=== PATIENT | male | born 1960 | race Hispanic/Latino ===

== ENCOUNTER 2016-11-19 07:14 | Emergency (ER) | payer MEDICARE, OTHER ==
[2016-11-19 07:15] VITALS: PULSE 86
[2016-11-19 07:27] VITALS: BMI 20.5
--- NOTE | 2016-11-19 07:38 | ED PDOC ---
Arrival/HPI - General Chief Complaint: Abnormal Skin Integrity Time Seen by Provider: 11/19/16 07:33 Historian: Patient - History of Present Illness Narrative History of Present Illness (Text): 11/19/16 07:38 A 56 year old male, whose past medical history includes hypertension, cardiomyopathy, hyperlipidemia and COPD, presents to the emergency department complaining of active bleeding from port since this morning. As per ER nurse, one of the ports from the PICC line was unclamped. Bleeding resolved immediately after port was clamped. Dressing changed. Patient denies any fever, nausea, vomiting, abdominal pain, chest pain, shortness of breath or any other complaints. PMD: Dr. Flores Time/Duration: Prior to Arrival Symptom Course: Resolved Quality: Other Context: Home Past Medical History - Provider Review Nursing Documentation Reviewed: Yes - Infectious Disease Hx of Infectious Diseases: None - Tetanus Immunization Tetanus Immunization: Unknown - Cardiac Hx Cardiac Disorders: Yes Hx Congestive Heart Failure: Yes (2 years ago) Hx Hypertension: Yes - Pulmonary Hx Chronic Obstructive Pulmonary Disease (COPD): Yes - Neurological Hx Neurological Disorder: No - HEENT Hx HEENT Disorder: No - Renal Hx Renal Disorder: Yes Hx Renal Cancer: Yes - Endocrine/Metabolic Hx Endocrine Disorders: No - Hematological/Oncological Hx Blood Disorders: No - Integumentary Hx Dermatological Disorder: No - Musculoskeletal/Rheumatological Hx Back Pain: Yes Hx Falls: Yes Other/Comment: leg cramps - Gastrointestinal Hx Gastrointestinal Disorders: No - Genitourinary/Gynecological Hx Genitourinary Disorders: No - Psychiatric Hx Psychophysiologic Disorder: No Hx Anxiety: Yes Hx Substance Use: No - Surgical History Hx Open Heart Surgery: Yes Hx Valve Replacement: Yes (2 years ago) - Anesthesia Hx Anesthesia Reactions: No Hx Malignant Hyperthermia: No - Suicidal Assessment Feels Threatened In Home Enviroment: No Family/Social History - Physician Review Nursing Documentation Reviewed: Yes Family/Social History: No Known Family HX Smoking Status: Former Smoker Hx Alcohol Use: No Hx Substance Use: No Hx Substance Use Treatment: No Allergies/Home Meds Allergies/Adverse Reactions: Allergies No Known Allergies Allergy (Verified 11/19/16 07:33) Home Medications: Home Meds Medication Instructions Recorded Confirmed Milrinone 20mg/100ml D5W [Primacor 0.5 mcg IV CONT 10/11/14 11/19/16 20mg/100ml D5W] Zolpidem Tartrate [Ambien] 5 mg PO HS 04/17/15 11/19/16 Carvedilol [Coreg] 3.125 mg PO BID 09/27/15 11/19/16 Digoxin [Lanoxin] 0.125 mg PO DAILY 09/27/15 09/22/16 Gabapentin 300 mg PO TID 02/29/16 09/22/16 Magnesium Oxide 400 mg PO TID 02/29/16 11/19/16 Potassium Chloride 20 meq PO DAILY 02/29/16 11/19/16 Furosemide [Lasix] 40 mg PO BID 05/25/16 11/19/16 Cyclobenzaprine HCl 5 mg PO DAILY 06/26/16 11/19/16 Oxycodone HCl [Oxycontin] 10 mg PO Q6H 06/26/16 11/19/16 traMADol [Ultram] 50 mg PO PRN PRN 09/15/16 11/19/16 Physical Exam - Physical Exam Narrative Physical Exam (Text): - Review of Systems Constitutional: (+) Bleeding from port absent: Fatigue, Weight Change, Fevers Eyes: Normal ENT: Normal Respiratory: Normal absent: SOB, Cough, Sputum Cardiovascular: Normal absent: Chest pain, Palpitations, Syncope Gastrointestinal: Normal absent: Abdominal pain, Diarrhea, Nausea, Vomiting Genitourinary: Normal. absent: Dysuria, Frequency, Hematuria Musculoskeletal: Normal. absent: Arthralgias, Back Pain, Neck Pain Skin: Normal Neurological: Normal absent: Focal Weakness Endocrine: Normal Hemo/Lymphatic: Normal Psychiatric: Normal - Physical exam Patient appears age appropriate, speaking full sentences without difficulty - Systems Exam Head: Present: Atraumatic, Normocephalic Pupils: Present: PERRL Extraocular Muscles: Present: EOMI Conjunctiva: Present: Normal Mouth: Present: Moist Mucous Membranes Neck: Present: Normal Range of Motion. No: MIDLINE TENDERNESS, Paraspinal Tenderness Respiratory/Chest: Present: Clear to Auscultation, Good Air Exchange. No: Respiratory Distress, Accessory Muscle Use, Tachypneic Cardiovascular: Present: Regular Rate and Rhythm, Normal S1, S2, Peripheral Pulses Present. No: Murmurs Abdomen: Present: Normal Bowel Sounds, No: Tenderness, Peritoneal Signs, Rebound, Guarding, Distention Back: Present: Normal Inspection. No: Midline Tenderness, Paraspinal Tenderness Upper Extremity: Present: Normal Inspection. No: Cyanosis, Edema Lower Extremity: Present: Normal Inspection. No: Edema Neurological: Present: GCS=15, Speech Normal, cranial nerves II through XII fully intact with no cerebellar abnormality, neuro-sensory fully intact. No focal neurological deficits. Skin: Present: Warm, Dry, Normal Color. PICC line in place, no active bleeding. No tenderness. No erythema. No: Rashes Lymphatic: Present: OX3, NI, NC Psychiatric: Present: Alert, Oriented x 3, Normal Insight, Normal Concentration Vital Signs Reviewed: Yes Vital Signs Temp Pulse Resp BP Pulse Ox 11/19/16 07:46 97.5 F L 83 20 149/60 97 11/19/16 07:29 88 18 149/49 L 99 Blood Pressure: Hypotensive Pulse: Regular Respiratory Rate: Normal Appearance: Positive for: Well-Appearing, Non-Toxic, Comfortable Pain Distress: None Mental Status: Positive for: Alert and Oriented X 3 Medical Decision Making ED Course and Treatment: Impression: A 56 year old male with active bleeding from port. Bleeding resolved immediately after port was clamped. Patient denies any complaints. Physical exam unremarkable. Pt started his milrinone drip in the ED states he has no complaints and feels well Pt states he understands to return to the ER right away for new or worsening symptoms or for inability to f/u with PMD or specialist as instructed. Patient states that he fully agrees with and understands discharge instructions. States that he agrees with the plan and disposition. Verbalized and repeated discharge instructions and plan. I have given the patient opportunity to ask any additional questions. - Scribe Statement The provider has reviewed the documentation as recorded by the Derik Lopez Provider Scribe Attestation: All medical record entries made by the Scribdeborah were at my direction and personally dictated by me. I have reviewed the chart and agree that the record accurately reflects my personal performance of the history, physical exam, medical decision making, and the department course for this patient. I have also personally directed, reviewed, and agree with the discharge instructions and disposition. Disposition/Present on Arrival - Present on Arrival Any Indicators Present on Arrival: No History of DVT/PE: No History of Uncontrolled Diabetes: No Urinary Catheter: No History of Decub. Ulcer: No History Surgical Site Infection Following: None - Disposition Have Diagnosis and Disposition been Completed?: Yes Diagnosis: Bleeding from PICC line Disposition: HOME/ ROUTINE Disposition Time: 07:25 Patient Plan: Discharge Patient Problems: Current Active Problems Problem Status Diagnosed Back pain Acute Bleeding from PICC line Acute Sepsis Acute Condition: GOOD Discharge Instructions (ExitCare): Peripherally Inserted Central Catheters and Midline Catheters (GEN) Additional Instructions: PLEASE FOLLOW UP WITH YOUR VASCULAR SURGEON AT [facility] RETURN TO THE ER RIGHT AWAY FOR NEW OR WORSENING SYMPTOMS, OR IF YOU CANNOT FOLLOW UP INSTRUCTED Referrals: Kike Ferro MD [Staff Provider] - Follow up with primary
[2016-11-19 07:47] VITALS: BP 149/60; PULSE 83; RESP 20; TEMP 97.5; O2SAT 97
== END 2016-11-19 08:40 | disposition home or self-care (01) ==
LOC: ED 07:14
DX: T82.838A Hemorrhage due to vascular prosthetic devices, implants and grafts, initial encounter (principal); Y84.8 Other medical procedures as the cause of abnormal reaction of the patient, or of later complication, without mention of misadventure at the time of the procedure; Y92.89 Other specified places as the place of occurrence of the external cause